=== PATIENT | male | born 1960 | race Caucasian/White ===

== ENCOUNTER → 2019-01-17 | Outpatient (CLI) | payer OTHER, SELFPAY ==
--- NOTE | 2019-01-17 14:11 | CT_ITS ---
HISTORY: LUNG CA [id number] X35 YEARS--QUIT X7 YEARS AGO EXAMINATION: CT Chest W/O Contrast TECHNIQUE: Helically acquired images were obtained of the chest. A radiation dose optimization technique was used for this scan. IV Contrast dosage and agent: None. COMPARISON: None FINDINGS: UPPER ABDOMEN: No acute pathology. Several small gallstones in the gallbladder. HEART AND PERICARDIUM: Heart size is normal. There is no pericardial effusion. Coronary artery atherosclerosis. VESSELS: Thoracic aorta is not dilated. MEDIASTINUM AND CARMELINA: There is no mediastinal or hilar adenopathy. Esophagus is unremarkable. There is no hiatal hernia. OTHER SOFT TISSUES: Included thyroid gland is unremarkable. There is no axillary, supraclavicular or lower cervical adenopathy. LUNGS AND LARGE AIRWAYS: Clear. No pneumothorax. PLEURA: Unremarkable. No pleural effusion or thickening. BONES: No suspicious lytic or blastic abnormality observed. CT/Chest without Contrast IMPRESSION: No concerning nodules or masses in the lungs. Lung RADS 1. Coronary artery atherosclerosis. Cholelithiasis. Individualized dose optimization techniques were used for this CT. at 0033 Reported and signed by: Antonio Robins MD Electronically Signed: Antonio Robins, at 0:32 EDT Tel , Service support ,
== END | disposition home or self-care (01) ==
PROVIDERS: Family Provider Family Medicine; PCP Family Medicine; Referring Provider Family Medicine; Visit Provider Family Medicine
DX: Z12.2 Encounter for screening for malignant neoplasm of respiratory organs (principal)
CPT/HCPCS: 71250

== ENCOUNTER → 2019-05-08 | Outpatient (CLI) | payer OTHER, SELFPAY ==
[2019-05-08 10:24] LABS: PSA,Total - Annual Screen 1.49 ng/mL (0.00-4.00)
== END | disposition home or self-care (01) ==
LOC: LAB 09:01
PROVIDERS: Family Provider Family Medicine; PCP Family Medicine; Referring Provider Urology; Visit Provider Urology
DX: Z12.5 Encounter for screening for malignant neoplasm of prostate (principal)
CPT/HCPCS: 36415; 84153; G0103

== ENCOUNTER → 2019-05-23 | Outpatient (CLI) | payer OTHER, SELFPAY ==
--- NOTE | 2019-05-23 14:29 | CT_ITS ---
STUDY: CT ABDOMEN AND PELVIS WITH AND WITHOUT CONTRAST REASON FOR EXAM: Male, 58 years old. Hematuria RADIATION DOSAGE (If Supplied By Facility): CTDIvol = ( 15.50 ) mGy, DLP = ( 2212.57 ) mGycm TECHNIQUE: Transaxial images were obtained from the dome of the diaphragm to the symphysis pubis without oral contrast. 100 IV Isovue 300 was administered. Sagittal and coronal images were reconstructed. Individualized dose optimization techniques were used for this CT. COMPARISON: None. FINDINGS: The base of the lungs appear clear. The visualized portions of the heart are within normal limits. There is decreased attenuation of the liver consistent with steatosis. Multiple punctate stones in a contracted gallbladder. Normal spleen. Normal pancreas. Normal bilateral adrenal glands. There is a right renal cyst measuring 6.9 mm almost too small to characterize. There is a small cyst measuring 6.4 mm. These show no obvious enhancement but are too small to characterize. Normal left kidney. There is a small hiatal hernia. Normal small intestine. There is moderate stool in the colon. There is diverticulosis without visualized diverticulitis. There is non-visualization of the appendix. Aorta is partially calcified. Normal inferior vena cava. Normal retroperitoneum. There is a mildly thick-walled appearance of the bladder. There is an inhomogeneous appearance of the base of the bladder where there is a enlarged appearance of the prostate which contains at least 2 nodules one measuring 1.01 measuring 1.2 cm. Delayed contrast images show contrast within the bladder. There are punctate calcifications suggested in the prostate. Normal abdominal wall. There are diffuse degenerative changes of the visualized lumbar spine. CT/CT Abd/Pelvis W/WO Contrast IMPRESSION: Inhomogeneous appearance of the posterior aspect of the bladder which may represent volume averaging with the inhomogeneous appearance of the prostate which is mildly enlarged, which contains 2 nodules. In the appropriate setting potentially infection or cancer could have this appearance. Recommend correlation with prostate laboratory values urinary laboratory values clinical exam. Hepatic steatosis Cholelithiasis. No evidence of renal ureteral bladder calculi. There are nonspecific small right renal cyst too small to characterize for which a follow-up ultrasound is suggested. Constipation. Electronically Signed: Briseyda Walker MD at 17:02 EDT Tel , Service support ,
== END | disposition home or self-care (01) ==
PROVIDERS: Family Provider Family Medicine; PCP Family Medicine; Referring Provider Nurse Practitioner Adult Health; Visit Provider Nurse Practitioner Adult Health
DX: R31.9 Hematuria, unspecified (principal)
CPT/HCPCS: 74178; Q9967

== ENCOUNTER → 2019-08-28 17:33 | Outpatient (CLI) | payer OTHER, SELFPAY ==
--- NOTE | 2019-08-28 | FLU_PTH ---
PATIENT: JAMISON MERCADO LOC: [facility] U#:[id number] AGE/SX: 64/M ROOM: RE08/28/[address]: Dr. Efraín Fraire MD : 1960 BED: DIS: SPEC #: [id number] RECD: 08/28/19 15:00 STATUS: NIKKI BALDO #: [id number] HO: 08/28/19 00:[address]: Efraín Fraire DEPT: CYTOLOGY RECD BY: Luisa Hawkins ENTERED: 08/29/19 09:06 SP TYPE: Fluid OTHR DR: Dr. Jeff Tripp MD Tissues: Urine Procedures: Special Stain Group II Cytospin Fluid HEADER OPERATION: Not noted PRE-OP DIAGNOSIS: Hematuria unspecified R31.9 TISSUE SUBMITTED: Urine for cytology DIAGNOSIS CYTOLOGY Urine for cytology (cytospin): A few atypical urothelial cells noted. Acute inflammation. See comment. SJ:roque 09/01/19 COMMENT The differential diagnosis includes infection, calculi or low-grade urothelial neoplasm. Correlation with clinical findings and appropriate follow up are necessary. CYTOLOGY STUDY Slides are reviewed. CYTOLOGY GROSS Received is 70 ml of yellow hazy fluid labeled with the patient's name and and designated per the requisition as urine. Submitted for cytology preparation including cell block. / CC: cc 08/29/19 TC:5 CPT: 69517
[2019-08-28 17:35] LABS: Cytology, Body Fluid / CSF SEE PATHOLOGY REPORT
== END ==
PROVIDERS: Family Provider Family Medicine; PCP Family Medicine; Referring Provider Urology; Visit Provider Urology
DX: R31.9 Hematuria, unspecified (principal)
CPT/HCPCS: 88108; 88305; 88313

== ENCOUNTER → 2021-01-27 16:39 | Outpatient (CLI) | payer OTHER, SELFPAY ==
[2021-01-27 18:20] LABS: PSA,Total - Annual Screen 1.98 ng/mL (0.00-4.00)
== END ==
PROVIDERS: PCP Family Medicine; Referring Provider Nurse Practitioner Adult Health; Visit Provider Nurse Practitioner Adult Health
DX: Z12.5 Encounter for screening for malignant neoplasm of prostate (principal)
CPT/HCPCS: 36415; 84153; G0103

== ENCOUNTER → 2021-02-01 14:26 | Outpatient (CLI) | payer OTHER, SELFPAY ==
--- NOTE | 2021-02-01 14:33 | CT_ITS ---
STUDY: CT ABDOMEN AND PELVIS WITH AND WITHOUT CONTRAST REASON FOR EXAM: Male, 60 years old. GROSS HEMATURIA RADIATION DOSAGE (If Supplied By Facility): CTDIvol = ( 23.59 ) mGy, DLP = ( 2572.12 ) mGycm TECHNIQUE: Transaxial images were obtained from the dome of the diaphragm to the symphysis pubis without oral contrast. IV 100mL Isovue-300 was administered. Sagittal and coronal images were reconstructed. Individualized dose optimization techniques were used for this CT. COMPARISON: 05/23/2019 FINDINGS: The visualized lung bases are unremarkable. The visualized portions of the heart are within normal limits. Normal liver. There are multiple gallstones. Normal spleen. Normal pancreas. Normal bilateral adrenal glands. 2 mm nonobstructing stone in the upper pole the right kidney. Normal left kidney. There is a small hiatal hernia. Normal small intestine. There are multiple colonic diverticula consistent with diverticulosis. The appendix is visualized and appears normal. Normal abdominal aorta. Normal inferior vena cava. Normal retroperitoneum. Normal urinary bladder. There is enlargement of the prostate gland. Normal abdominal wall. Normal osseous structures. CT/CT Abd/Pelvis W/WO Contrast IMPRESSION: 2 mm nonobstructing stone in the upper pole the right kidney. Probable benign prostatic hyperplasia. Electronically Signed: Hay Duggan MD at 15:16 EDT Tel , Service support ,
[2021-02-01 14:51] LABS: CREATININE FINGERSTICK 1.2 mg/dL (0.70-1.30); EGFR FINGERSTICK > 60.0000 mL/min (>60)
== END ==
PROVIDERS: PCP Family Medicine; Referring Provider Nurse Practitioner Adult Health; Visit Provider Nurse Practitioner Adult Health
DX: R31.0 Gross hematuria (principal)
CPT/HCPCS: 74178; Q9967